=== PATIENT | male | born 1980 | race Caucasian/White ===

== ENCOUNTER 2017-05-16 11:27 | Inpatient (IN) | payer MEDICAID ==
[~2017-05-16] VITALS: Ht 175.3 cm; Wt 67.4 kg
[~2017-05-16 11:27] MED LIST: DIAZ5TAB PO; TRAZ50TA18 PO
[2017-05-16] MEDS ORDERED: NITROGLYCERIN SINGLE TAB 0.4 MG SL PRN (12:00)
[2017-05-16] MEDS ORDERED: ASPIRIN 81 MG TABLET CHEW ONE (12:00)
[2017-05-16] MEDS ORDERED: ASPIRIN 81 MG TABLET CHEW PO ONE (12:00)
[2017-05-16] MEDS ORDERED: SODIUM CHLORIDE 0.9% 1,000ML IVBOLUS ONE (12:00)
[2017-05-16] MEDS ORDERED: ONDANSETRON 2MG/ML, 2ML ONE (12:00)
[2017-05-16] MEDS ORDERED: MORPHINE SULFATE 4 MG/ML, 1ML ONE ×3 (12:00→14:28)
[2017-05-16] MEDS ORDERED: SODIUM CHLORIDE FLUSH 10ML SYR IVF ONE (12:00)
[2017-05-16] MEDS ORDERED: ONDANSETRON 2MG/ML, 2ML IVPush ONE (12:00)
[2017-05-16] MEDS: MORPHINE SULFATE 4 MG/ML, 1ML IVPush PRN ×2 (12:02→12:33)
[2017-05-16 12:12] LABS: HEMATOCRIT 53.7 % (39.2-51.8); WHITE BLOOD COUNT 9.6 x10^3/uL (3.4-10)
[2017-05-16 12:17] LABS: ASPARTATE AMINO TRANSFERASE 44 U/L (15-37); BLOOD UREA NITROGEN 12 mg/dL (7-18)
[2017-05-16] MEDS ORDERED: NITROGLYCERIN SINGLE TAB 0.4 MG SL ONE (12:27)
[2017-05-16] MEDS ORDERED: NS + 40MEQ KCL 1,000 ML IV ONE ×2 (12:47→12:58)
[2017-05-16] MEDS ORDERED: POTASSIUM CHLORIDE 20 MEQ TAB.ER.PRT ONE (12:58)
[2017-05-16] MEDS ORDERED: POTASSIUM CHLORIDE 20 MEQ TAB.ER.PRT PO ONE (13:00)
[2017-05-16] MEDS ORDERED: NICOTINE 14MG/24 HR PATCH.TD24 ONE (14:28)
[2017-05-16] MEDS ORDERED: POTASSIUM CHLORIDE 40 MEQ in SODIUM CHLORIDE 0.9% 500 ML IV ONE (14:30)
[2017-05-16] MEDS ORDERED: LORazepam 2 MG/ML, 1ML IVPush PRN (14:30)
[2017-05-16] MEDS ORDERED: hydrALAzine 20 MG/ML, 1ML IVPush PRN (14:30)
[2017-05-16] MEDS ORDERED: ONDANSETRON 2MG/ML, 2ML IVPush PRN (14:30)
[2017-05-16] MEDS: morphine SULFATE 10 MG/ML, 1ML IVPush PRN ×4 (14:36→23:38)
[2017-05-16] MEDS: SODIUM CHLORIDE 0.9% 1,000 ML IV SCH ×2 (14:36→20:41)
[2017-05-16] MEDS: NICOTINE 14MG/24 HR PATCH.TD24 TD SCH (14:37)
[2017-05-16 15:27] VITALS: BP 132/83
[2017-05-16] MEDS: POTASSIUM CHLORIDE 40 MEQ in SODIUM CHLORIDE 0.9% 500 ML IV SCH (18:21)
[2017-05-16 20:25] VITALS: BP 101/67
[2017-05-16] MEDS: PANTOPRAZOLE 40 MG IV IVPush SCH (20:33)
[2017-05-17] MEDS: POTASSIUM CHLORIDE 40 MEQ in SODIUM CHLORIDE 0.9% 500 ML IV SCH (01:26)
[2017-05-17 03:45] VITALS: BP 106/61
[2017-05-17] MEDS: morphine SULFATE 10 MG/ML, 1ML IVPush PRN ×4 (04:04→15:11)
[2017-05-17 05:12] LABS: HEMATOCRIT 42.9 % (39.2-51.8); HEMOGLOBIN 14.3 g/dL (13.7-18.0); WHITE BLOOD COUNT 6.7 x10^3/uL (3.4-10)
[2017-05-17 05:21] LABS: BLOOD UREA NITROGEN 7 mg/dL (7-18)
[2017-05-17 05:24] LABS: ASPARTATE AMINO TRANSFERASE 45 U/L (15-37)
[2017-05-17] MEDS: SODIUM CHLORIDE 0.9% 1,000 ML IV SCH ×2 (07:12→15:10)
[2017-05-17] MEDS: PANTOPRAZOLE 40 MG IV IVPush SCH (08:30)
[2017-05-17 09:27] VITALS: BP 108/66
[2017-05-17] MEDS: DIAZEPAM 5 MG/ML, 2ML IVPush SCH ×2 (10:44→17:40)
[2017-05-17 13:30] VITALS: BP 113/74
[2017-05-17] MEDS ORDERED: POTASSIUM PHOSPHATE 44 MEQ in SODIUM CHLORIDE 0.9% 500 ML IV ONE (14:30)
[2017-05-17] MEDS: NICOTINE 14MG/24 HR PATCH.TD24 TD SCH (15:11)
[2017-05-17] MEDS ORDERED: MAGNESIUM OXIDE 400 MG TABLET PO SCH (21:00)
[2017-05-18] MEDS ORDERED: THIAMINE 100MG TABLET PO SCH (09:00)
[2017-05-18] MEDS ORDERED: FOLIC ACID 1 MG TABLET PO SCH (09:00)
[2017-05-18] MEDS ORDERED: MULTIVITAMIN 1 TABLET PO SCH (09:00)
== END 2017-05-17 17:45 | disposition short-term general hospital (02) | DRG 439 ==
LOC: ED 12:49 → EDIP 12:50 → ED 13:25 → 4NOR 15:09
PROVIDERS: ADMIT Internal Medicine; ATTEND Internal Medicine
DX: K85.20 Alcohol induced acute pancreatitis without necrosis or infection (principal); E87.1 Hypo-osmolality and hyponatremia; R65.10 Systemic inflammatory response syndrome (SIRS) of non-infectious origin without acute organ dysfunction; E87.6 Hypokalemia; K70.10 Alcoholic hepatitis without ascites; F41.9 Anxiety disorder, unspecified; H53.2 Diplopia; E86.0 Dehydration; Z87.891 Personal history of nicotine dependence
CPT/HCPCS: 36415; 71010; 80053; 81003; 83605; 83690; 83735; 84100; 84484; 85025; 87324; 89055; 93005; 96361; 96374; 96375; 96376; J2405; J3360; J3480; C9113; J2270; J7030; J7040

== ENCOUNTER 2019-05-07 17:33 | Emergency (ER) | payer MEDICAID ==
[~2019-05-07] VITALS: Ht 175.3 cm; Wt 75.0 kg
[~2019-05-07 17:33] MED LIST changes: -TRAZ50TA18 PO; +TRAZ50TA66 PO
--- NOTE | 2019-05-07 17:57 | NUR ---
Received report from JUANITA Cortez. All questions answered. ABILIO. Pt resting on gurney asleep. Law enforcement at bedside.
[2019-05-07] MEDS ORDERED: NALOXONE 1 MG/ML, 2ML IM ONE (19:00)
[2019-05-07] MEDS ORDERED: ALBUTEROL SULFATE 2.5 MG/3 ML NPPB ONE (19:00)
--- NOTE | 2019-05-07 19:06 | NUR ---
Provided report to JUANITA Morris. All questions answered. NADN. Arturo RN and JUANITA Niño. to assume care of pt.
[2019-05-07] MEDS ORDERED: NALOXONE 1 MG/ML, 2ML ONE (19:09)
[2019-05-07] MEDS ORDERED: ALBUTEROL SULFATE 2.5 MG/3 ML ONE (19:12)
--- NOTE | 2019-05-07 20:16 | NUR ---
SEAN RN: PT DISCHARGED FOR PRIMARY RN. PT CLEARED FOR CORRECTION BY DR MCALLISTER.
[2019-05-07 20:18] VITALS: BP 117/82
== END 2019-05-07 20:22 | disposition home or self-care (01) ==
LOC: ED 20:16
DX: R07.89 Other chest pain (principal); F15.10 Other stimulant abuse, uncomplicated; F10.129 Alcohol abuse with intoxication, unspecified; Z72.9 Problem related to lifestyle, unspecified
CPT/HCPCS: 71045; 94640; 96372; 99283; J2310; J7613

== ENCOUNTER 2019-11-28 17:58 | Emergency (ER) | payer MEDICAID ==
[~2019-11-28] VITALS: Ht 175.3 cm; Wt 71.8 kg
--- NOTE | 2019-11-28 19:12 | NUR ---
MANAGER HOME: PT WALKED BACK FROM LOBBY TO ROOM BY EMT AT THIS TIME.
--- NOTE | 2019-11-28 19:20 | NUR ---
PT STATES ABCESS TO RLQ, ONSET 2 WEEKS AGO INGROWN HAIRS. STATES PAIN 7/10. NO DRAINAGE NOTED. IN NAD. DENIES ANY RX CALL CENTER ANALYST. TBS.
[2019-11-28] MEDS ORDERED: OXYcodone/APAP 5/325MG TABLET PO ONE (19:30)
[2019-11-28] MEDS ORDERED: LIDOCAINE 1%, 10ML INFIL ONE (19:30)
[2019-11-28] MEDS ORDERED: SODIUM CHLORIDE FLUSH 10ML SYR IVF ONE (19:30)
[2019-11-28] MEDS ORDERED: OXYcodone/APAP 5/325MG TABLET ONE (19:31)
[2019-11-28] MEDS ORDERED: LIDOCAINE-MPF 1%, 5ML ONE (19:31)
[2019-11-28 19:48] LABS: BASOPHILS # (AUTO) 0.08 x10^3/uL (0-0.1); BASOPHILS % (AUTO) 1 % (0-1); EOSINOPHILS # (AUTO) 0.19 x10^3/uL (0-0.4); EOSINOPHILS % (AUTO) 2 % (1-7); LYMPHOCYTES # (AUTO) 1.48 x10^3/uL (1-3.4); LYMPHOCYTES % (AUTO) 16 % (22-44); MD NO; MEAN CORPUSCULAR HEMOGLOBIN 30.8 pg (27.5-34.5); MEAN CORPUSCULAR HGB CONC 33.5 g/dL (33.2-36.2); MEAN CORPUSCULAR VOLUME 91.8 fL (81-97); MONOCYTES # (AUTO) 1.02 x10^3/uL (0.2-0.8); MONOCYTES % (AUTO) 11 % (2-9); NEUTROPHILS # (AUTO) 6.61 x10^3/uL (1.8-6.8); NEUTROPHILS % (AUTO) 71 % (42-75); PLATELET COUNT 375 x10^3/uL (130-400)
[2019-11-28 19:52] LABS: ALBUMIN 3.4 g/dL (3.4-5.0); ANION GAP 3 mmol/L (5-15); CALCIUM 9.2 mg/dL (8.5-10.1); CHLORIDE 102 mmol/L (98-107); CREATININE 0.92 mg/dL (0.7-1.3)
[2019-11-28 20:03] VITALS: BP 109/63
== END 2019-11-28 22:22 | disposition home or self-care (01) ==
LOC: ED 20:52
DX: L03.311 Cellulitis of abdominal wall (principal); L02.211 Cutaneous abscess of abdominal wall; F17.200 Nicotine dependence, unspecified, uncomplicated
CPT/HCPCS: 10060; 36415; 80048; 82040; 85025; 99283; J3490